=== PATIENT | female | born 1995 | race Caucasian/White ===

== ENCOUNTER 2016-07-28 20:40 | Emergency (ER) | payer OTHER ==
[2016-07-28 21:11] VITALS: BP 111/59; PULSE 68; TEMP 97.8; BMI 28.1
--- NOTE | 2016-07-28 21:37 | PDOC ---
[id number] RIGHT SIDED CHEST PAIN Time Seen by Provider: 07/28/16 21:07 - History of Present Illness Initial Comments: This otherwise healthy 20-year-old woman presents with a history of right lateral lower chest/upper abdominal pain for the last 3 days. Pain is worse with deep breathing and movement of her upper body. Patient states that she felt mild pain in the area without history of trauma or overuse (patient uses resistant and for exercise and has not overuse them in recent days). She denies shortness of breath/cough. There has been no fever/chills or nausea/ vomiting/diarrhea. She has no increase in pain after eating. No previous history of this type of pain. Past History - Past Medical History Allergies/Adverse Reactions: Allergies Allergy/AdvReac Type Severity Reaction Status Date / Time No Known Allergies Allergy Verified 07/28/16 21:03 Home Medications: Ambulatory Orders Diclofenac Sodium [Voltaren -] 75 mg PO BID PRN #14 tablet. 07/29/16 - Immunization History Immunization Up to Date: Yes - Psycho/Social/Smoking Cessation Hx Anxiety: No Suicidal Ideation: No Smoking History: Never smoked Hx Alcohol Use: Yes (SOCIAL) Drug/Substance Use Hx: No Substance Use Type: None Review of Systems - Review of Systems Able to Perform ROS?: Yes Comments:: 12 point review of systems is negative except for what is noted in the history of present illness *Physical Exam - Vital Signs Last Vital Signs Temp Pulse Resp BP Pulse Ox 97.8 F 68 15 111/59 100 07/28/16 21:03 07/28/16 21:03 07/28/16 21:03 07/28/16 21:03 07/28/16 21:03 - Physical Exam Comments: GENERAL: Awake, alert, and fully oriented, in no acute distress HEAD: No signs of trauma EYES: PERRLA, EOMI, sclera anicteric, conjunctiva clear ENT: Auricles normal inspection, hearing grossly normal, nares patent, oropharynx clear without exudates. Moist mucosa NECK: Normal ROM, supple, no lymphadenopathy, JVD, or masses LUNGS: Breath sounds clear and equal. No wheezes, and no crackles HEART: Regular rate and rhythm, normal S1 and S2, no murmurs, rubs or gallops CHEST WALL: Mild tenderness along lateral aspect of her right costal margin; otherwise no tenderness/step-offs or crepitus ABDOMEN: Soft, normoactive bowel sounds. Tenderness of right upper quadrant/ right flank; No guarding, no rebound. No masses EXTREMITIES: Normal range of motion, no edema. No clubbing or cyanosis. No cords, erythema, or tenderness NEUROLOGICAL: Cranial nerves II through XII grossly intact. Normal speech, normal gait SKIN: Warm, Dry, normal turgor, no rashes or lesions noted. ED Treatment Course - ADDITIONAL ORDERS Additional order review: Laboratory Results 07/28/16 21:14 Urine HCG, Qual Negative Medical Decision Making - Medical Decision Making Because of the patient's right upper quadrant abdominal tenderness, gallbladder/ upper abdominal ultrasound was performed to rule out gallbladder pathology. Although gallbladder was contracted secondary to recent meal, no stones or other pathology noted by imaging installation & maintenance executive interpretation. Chest x-ray showed no evidence of infiltrates/effusions/bony abnormality. Clinical presentation most consistent with right lower lateral chest wall muscle strain/upper abdominal and flank muscle strain. Toradol 60 mg IM given for analgesia/anti-inflammatory effects. Patient has been instructed avoid strenuous activity over the next several days , especially those involving the upper body. Diclofenac 75 mg to be taken up to twice a day as needed for persistent pain will be transmitted to pharmacy. Patient should return to the emergency room if she has severe pain or shortness of breath. Patient is of local [employer] student and has a general medical doctor in [place] where she resides. Patient has been instructed to follow-up with her general medical doctor when she returns home from school. She is also given in the 80s referral information if she needs to see a general medical doctor prior to returning home. *DC/Admit/Observation/Transfer Diagnosis at time of Disposition: Chest wall muscle strain Qualifiers: Encounter type: initial encounter Qualified Code(s): S29.011A - Strain of muscle and tendon of front wall of thorax, initial encounter Abdominal wall strain Qualifiers: Encounter type: initial encounter Qualified Code(s): S39.011A - Strain of muscle, fascia and tendon of abdomen, initial encounter - Discharge Dispostion Disposition: HOME Condition at time of disposition: Stable - Prescriptions Prescriptions: Diclofenac Sodium [Voltaren -] 75 mg PO BID PRN #14 tablet.dr VILLANUEVA Reason: Moderate Pain - Referrals Referrals: Saadia Bernard MD [Staff Physician] - 7 days - Patient Instructions Printed Discharge Instructions: Abdominal Muscle Strain Additional Instructions: Avoid strenuous exercise involving upper body for the next 5-7 days Diclofenac 75 mg up to twice a day as needed for pain Return if you have severe pain or develops vomiting/fever Follow-up with your general medical doctor when you return home You can also see if you continue to have pain
[2016-07-29] MEDS ORDERED: KETOROLAC TROMETHAMINE 60 MG/2 ML VIAL IM ONE (00:18)
[2016-07-29] MEDS ORDERED: KETOROLAC TROMETHAMINE 60 MG/2 ML VIAL ONE (00:19)
== END 2016-07-29 00:27 | disposition home or self-care (01) ==
LOC: FER 20:40
PROC: 3E0233Z Introduction of Anti-inflammatory into Muscle, Percutaneous Approach (ICD-10-PCS; principal; 2016-07-28)
DX: S29.011A Strain of muscle and tendon of front wall of thorax, initial encounter (principal); S39.011A Strain of muscle, fascia and tendon of abdomen, initial encounter; X58.XXXA Exposure to other specified factors, initial encounter; Y93.9 Activity, unspecified; Y92.9 Unspecified place or not applicable
CPT/HCPCS: 71020-TC; 76705-TC; 84703; 99282-25